=== PATIENT | male | born 1980 | race Caucasian/White ===

== ENCOUNTER 2023-12-13 17:56 | Emergency (ER) | payer BC ==
[2023-12-13 18:06] VITALS: BP 136/80; RESP 20; TEMP 98.6; BMI 35.4
[2023-12-13] MEDS ORDERED: SULFAMETHOXAZOLE/TRIMETHOPRIM 800MG/160MG D.S. TABLET ONE (18:55)
[2023-12-13] MEDS ORDERED: ACETAMINOPHEN 325 MG TABLET (FP) ONE (18:55)
[2023-12-13] MEDS ORDERED: IBUPROFEN 600 MG TABLET (FP) PO ONE (18:55)
[2023-12-13] MEDS: IBUPROFEN 600 MG TABLET (FP) PO ONE (19:00)
[2023-12-13] MEDS: SULFAMETHOXAZOLE/TRIMETHOPRIM 800MG/160MG D.S. TABLET PO ONE (19:00)
[2023-12-13] MEDS: ACETAMINOPHEN 500 MG TABLET (FP) PO ONE (19:00)
[2023-12-13 19:13] VITALS: PULSE 98
== END 2023-12-13 19:21 | disposition home or self-care (01) ==
LOC: JER 17:56
DX: L03.818 Cellulitis of other sites (principal)
CPT/HCPCS: 99283-25

== ENCOUNTER 2023-12-20 10:49 | Emergency (ER) | payer BC ==
[2023-12-20 11:00] VITALS: BP 145/86; PULSE 89; RESP 18; TEMP 98.4; BMI 35.4
== END 2023-12-20 11:52 | disposition home or self-care (01) ==
LOC: JERFT 10:49 → JER 10:49 → JERFT 11:52
DX: L02.11 Cutaneous abscess of neck (principal); Z48.01 Encounter for change or removal of surgical wound dressing
CPT/HCPCS: 99283-25